=== PATIENT | female | born 1955 | race Caucasian/White ===

== ENCOUNTER 2019-08-25 12:23 | Emergency (ER) | payer OTHER ==
[~2019-08-25] VITALS: Ht 157.5 cm; Wt 63.5 kg
[2019-08-25] MEDS ORDERED: METFORMIN HCL500 M1 (12:57)
[2019-08-25] MEDS ORDERED: ZOCOR80 MG (12:57)
[2019-08-25] MEDS ORDERED: LISINOPRIL10 MG (12:58)
[2019-08-25] MEDS ORDERED: AMOX1TAB5 PO (13:14)
== END 2019-08-25 13:25 | disposition home or self-care (01) ==
LOC: ER 12:23
DX: S50.871A Other superficial bite of right forearm, initial encounter (principal); W54.0XXA Bitten by dog, initial encounter; Y93.89 Activity, other specified; Y92.89 Other specified places as the place of occurrence of the external cause; Y99.8 Other external cause status